=== PATIENT | female | born 1960 | race Caucasian/White ===

== ENCOUNTER 2024-06-02 08:10 | Outpatient (CLI) | payer BC | END 2024-06-02 08:11 | disposition home or self-care (01) | LOC: CSHSLEEP 08:10 | PROVIDERS: ATTEND Physician Assistant | DX: G47.33 Obstructive sleep apnea (adult) (pediatric) (principal); I11.0 Hypertensive heart disease with heart failure; I50.9 Heart failure, unspecified; E66.9 Obesity, unspecified; Z68.35 Body mass index [BMI] 35.0-35.9, adult; R09.02 Hypoxemia | CPT/HCPCS: 95800 ==